=== PATIENT | male | born 1965 | race African-American/Black ===

== ENCOUNTER 2020-07-05 11:07 | Emergency (ER) | payer OTHER ==
[~2020-07-05] VITALS: Ht 167.6 cm; Wt 70.0 kg
[2020-07-05 11:08] VITALS: BP 131/92
[2020-07-05] MEDS ORDERED: TOPUD MT (12:50)
[2020-07-05] MEDS ORDERED: ACETAMINOPHEN 325MG TABLET PO ONE (13:00)
== END 2020-07-05 13:05 | disposition home or self-care (01) ==
LOC: ER 11:07 → EDBD 11:07 → ER 13:05
DX: M79.661 Pain in right lower leg (principal); M79.662 Pain in left lower leg; F17.210 Nicotine dependence, cigarettes, uncomplicated
CPT/HCPCS: 99282